=== PATIENT | male | born 1995 | race Asian ===

== ENCOUNTER 2023-11-26 18:35 | Emergency (ER) | payer OTHER ==
[~2023-11-26] VITALS: Ht 172.7 cm; Wt 90.7 kg
[2023-11-26 18:41] VITALS: BP 141/80; TEMP 98.4; O2SAT 97
== END 2023-11-26 20:21 | disposition home or self-care (01) ==
LOC: ER 18:35
DX: S62.336A Displaced fracture of neck of fifth metacarpal bone, right hand, initial encounter for closed fracture (principal); W04.XXXA Fall while being carried or supported by other persons, initial encounter; Y93.89 Activity, other specified; Y92.89 Other specified places as the place of occurrence of the external cause; Y99.8 Other external cause status
CPT/HCPCS: 73130-TC